=== PATIENT | male | born 1945 | race Caucasian/White ===

== ENCOUNTER → 2020-11-07 11:28 | Outpatient (BNVA) | payer OTHER, SELFPAY | PROVIDERS: Referring Provider Emergency Medicine Emergency Medical Services; Visit Provider Specialist | DX: M25.569 Pain in unspecified knee (principal); M17.11 Unilateral primary osteoarthritis, right knee; D16.21 Benign neoplasm of long bones of right lower limb | CPT/HCPCS: 73560; 73565 ==